=== PATIENT | female | born 1950 | race Caucasian/White ===

== ENCOUNTER → 2020-03-19 11:09 | Outpatient (CLI) | payer MEDICARE, SELFPAY ==
[2020-03-19 11:21] LABS: Adenovirus,PCR Not Detected (NotDetected); Bordetella Pertussis Not Detected (NotDetected); Chlamydophila Pneumoniae, PCR Not Detected (NotDetected); Coronavirus 19, PCR Not Detected (NotDetected); Coronavirus 229E Not Detected (NotDetected); Coronavirus NL63 Not Detected (NotDetected); Coronavirus OC43 Not Detected (NotDetected); Coronovirus HKU1,PCR Not Detected (NotDetected); Human Metapneumovirus Not Detected (NotDetected); Influenza A, PCR Not Detected (NotDetected); Influenza AH1, 2009 Not Detected (NotDetected); Influenza AH1, PCR Not Detected (NotDetected); Influenza AH3,PCR Not Detected (NotDetected); Influenza B, PCR Not Detected (NotDetected); Mycoplasma Pneumoniae, PCR Not Detected (NotDected); Parainfluenza 1, PCR Not Detected (NotDetected); Parainfluenza 2, PCR Not Detected (NotDetected); Parainfluenza 3, PCR Not Detected (NotDetected); Parainfluenza 4, PCR Not Detected (NotDetected); Respiratory Syncytial Virus Not Detected (NotDetected); Rhinovirus/Enterovirus Not Detected (NotDetected)
== END ==
PROVIDERS: Visit Provider Internal Medicine Gastroenterology
DX: Z01.818 Encounter for other preprocedural examination (principal)
CPT/HCPCS: 87581; 87633; 87798

== ENCOUNTER 2020-03-21 10:29 | Day surgery (SDC) | payer MEDICARE, SELFPAY ==
--- NOTE | 2020-03-17 12:05 | SUR.PREOP ---
03/14/2020--PHONE CALL MADE TO PATIENT. PATIENT UNDERSTANDS THAT LAB WORK AND COVID TESTING NEEDS TO BE COMPLETED @ 1030 ON 03/19/2020. PATIENT UNDERSTANDS IF LAB WORK AND COVID-19 TESTS ARE NOT COMPLETED BY 12PM ON THAT DATE, THE SURGERY SCHEDULED WILL BE CANCELLED AND RESCHEDULED FOR ANOTHER TIME.
[2020-03-18 12:29] VITALS: BMI 25.3
[2020-03-21 10:50] VITALS: BP 120/61; PULSE 71; RESP 18; TEMP 36.4; O2SAT 98
[2020-03-21 11:09] LABS: POC Glucose,Bedside 129 (70-110)
[2020-03-21 11:49] VITALS: O2SAT 97
--- NOTE | 2020-03-21 12:13 | P.PCN_ITS ---
[facility] Procedure Note Procedure Note:: Upper Endoscopy Procedure Report: Esophagogastroduodenoscopy with cold biopsies Endoscopost: Sebastian Stephenson II, MD Referring Physician: Shawn Pate MD Date of Procedure: March 21, 2020 Equipment: Olympus GIF 180 standard upper endoscope Sedation: MAC sedation Indications: Mrs. Zheng is a 70-year-old female with longstanding digestive difficulties. She has developed intermittent nausea and vomiting that began a couple of weeks ago after eating at [employer]. She developed dry heaves followed by nausea and vomiting. She had a low-grade fever. She had moderate bloating. This resolved over several days. She does get these episodic bouts and sometimes has associated diarrhea. She reports bloating, fullness and early satiety. She reports no belching, gassiness or dysphagia. She has had no melena or hematochezia. She reports some minor weight loss. Procedure: Prior to the procedure, a history and physical exam was performed, and patient's medications and allergies were reviewed. The risks, benefits and alternatives of the sedation and procedure were discussed with the patient. All questions were answered and informed consent was obtained. The patient was brought to the procedure room. Patient identification and proposed procedure were verified by the physician and the nurse. The patient was placed in a left lateral decubitus position and the scope was passed under direct vision. Throughout the procedure, the patient's blood pressure, pulse, and oxygen saturations were monitored continuously. The upper GI endoscopy was accomplished without difficulty. The patient tolerated the procedure well. Findings: The scope was passed directly into the upper esophagus and advanced to the third portion of the duodenum. The post bulbar duodenum and duodenal bulb were normal with normal mucosa and conniventes. Cold biopsies were taken from the duodenum to rule out celiac disease. The scope was withdrawn through a normal duodenal bulb and pylorus into the stomach. There was evidence of bile reflux with linear reactive gastropathy. The remainder of the antrum, body and fundus of the stomach were grossly normal. Upon retroflexion there was no hiatal hernia. 2 biopsies were taken in the antrum and along the lesser curvature for histology to rule out gastritis and/or H pylori. The scope was then withdrawn into the esophagus. There was a serrated Z line. Biopsies were taken at the GE junction to rule out Lomeli's esophagus. There was no evidence of reflux esophagitis or Schatzki's ring. There were tertiary contractions and evidence of mild esophageal dysmotility. The remainder of the esophageal mucosa was normal. Impression: 1. Nonerosive GERD with mild esophageal dysmotility 2. Mild linear reactive gastropathy Plan: I will follow-up the biopsies. We will discuss additional dietary measures and treatment options. I will proceed with diagnostic colonoscopy.
--- NOTE | 2020-03-21 12:32 | P.PCN_ITS ---
[facility] Procedure Note Procedure Note:: Colonoscopy Procedure Report: Colonoscopy with cold biopsies Endoscopist: Sebastian Stephenson II, MD Referring physician: Shawn Pate MD Date of Procedure: March 21, 2020 Equipment: Olympus 180 variable stiffness pediatric colonoscope Sedation: MAC sedation Indication: Mrs. Zheng is a 70-year-old female with longstanding digestive difficulties and intermittent, nausea, vomiting and diarrhea. She does have a prior history of lymphocytic colitis and had been on Entocort in the past. Her son has Crohn's disease. She had a normal colonoscopy in August 2012 and normal colonoscopy in February 2008. Her last colonoscopy in March 2015 revealed 2 polyps (tubular adenoma x1/benign retention polyp x1) which were removed. She does have mostly chronic constipation but does have difficulties with taking Metamucil or swallowing fiber. Her bowel difficulties were exacerbated by her AP bladder sling in December 2019. She did develop gastroenteritis after eating at [email or web address] 2 weeks ago. She reports no rectal bleeding but has had some minor weight loss. She reports no family history of colon cancer. Procedure: Prior to the procedure, a history and physical exam was performed, and patient's medications and allergies were reviewed. The risks, benefits and alternatives of the sedation and procedure were discussed with the patient. All questions were answered and informed consent was obtained. The patient was brought to the procedure room. Patient identification and proposed procedure were verified by the physician and the nurse. The patient was placed in a left lateral decubitus position and the scope was passed under direct vision. Throughout the procedure, the patient's blood pressure, pulse, and oxygen saturations were monitored continuously. The colonoscopy was accomplished without difficulty. The patient tolerated the procedure well. Findings: On digital rectal examination there was normal rectal tone. There were no external hemorrhoids. The colonoscope was introduced through the anal canal to the rectum and advanced to the cecum. The ileocecal valve and appendiceal orifice were identified. The scope was advanced a short distance into the ileum which appeared grossly normal. The scope was then withdrawn into the colon. The cecum, ascending, transverse, descending, sigmoid and rectum were grossly normal. Cold biopsies were taken from the right colon to rule out microscopic/lymphocytic colitis. There were no mucosal abnormalities identified. Upon retroflexion within the rectum there were grade 1-2 internal hemorrhoids.The preparation was excellent throughout with [place] Preparation Score of 9. The cecal time was 12 minutes. Impression: 1. Normal colonoscopy with intubation of the terminal ileum 2. Grade 1-2 internal hemorrhoids Plan: I will follow-up the biopsies. We will discuss additional dietary measures and treatment options.
[2020-03-21 12:34] VITALS: BP 84/47; PULSE 71; RESP 16; TEMP 36.5; O2SAT 93
[2020-03-21 12:44] VITALS: BP 105/64; PULSE 80; RESP 16; O2SAT 97
[2020-03-21 13:00] VITALS: BP 118/76; PULSE 72; RESP 16; O2SAT 99
[2020-03-21 13:23] VITALS: BP 138/74; PULSE 73; RESP 16; O2SAT 99
== END 2020-03-21 13:23 | disposition home or self-care (01) ==
PROVIDERS: PCP Emergency Medicine; Visit Provider Internal Medicine Gastroenterology
PROC: 0DJ08ZZ Inspection of Upper Intestinal Tract, Via Natural or Artificial Opening Endoscopic (ICD-10-PCS; CPT 43235; principal; 2020-03-21 11:30)
DX: K58.9 Irritable bowel syndrome, unspecified (principal); E11.9 Type 2 diabetes mellitus without complications; Z79.84 Long term (current) use of oral hypoglycemic drugs; Z88.8 Allergy status to other drugs, medicaments and biological substances; K59.09 Other constipation; Z86.010 Personal history of colon polyps; K21.9 Gastro-esophageal reflux disease without esophagitis; K31.9 Disease of stomach and duodenum, unspecified; K64.1 Second degree hemorrhoids
CPT/HCPCS: 43239; 45380; 82962; 88305

== ENCOUNTER 2025-03-20 11:38 | Day surgery (SDC) | payer MEDICARE, SELFPAY ==
[2025-03-19 12:23] VITALS: BMI 23.7
[2025-03-20 12:09] VITALS: BP 157/83; PULSE 72; RESP 18; TEMP 36.3; O2SAT 96
[2025-03-20] MEDS: LACTATED RINGERS 1000ML 1,000 ML 50 ML IV (12:18)
--- NOTE | 2025-03-20 12:33 | EXP.ANES.CKL ---
[facility] Disclaimer: The information contained in this section may have been updated after the patient was seen, as this information can be updated by other users. Medical History Migraine Diabetes mellitus, type 2 Anxiety Depression History of gastroesophageal reflux (GERD) Hyperlipidemia Hypertension History of left heart catheterization (LHC) Surgical History History of bladder repair surgery History of meniscectomy of right knee History of meniscectomy of left knee History of hysterectomy History of colonoscopy History of cholecystectomy History of appendectomy Family History Other No significant family history Social History Smoking Status: Never smoker alcohol intake: never substance use type: denies use current occupational status: retired Travel in the last 8 weeks?: None caffeine: No [facility] Anesthesia Checklist Patient Identification Patient Identification: Verbal (Name & ) Structural Data Admitted From: Home Planned Operative Procedure/s: colonoscopy Consent for Planned Operative Procedure(s) Verified: Yes Airway Assessment Mallampati Score:: Class II C-Spine Mobility Assessed: Yes TMJ Mobility Assessed: Yes Dentition: Good Dentition Neurological Assessment Level of Consciousness: Awake, Alert and Appropriate Anesthesia Plan Anesthesia Risk discussed: Yes Anesthesia Plan: Verified ASA Class: II Anesthesia Type: MAC
--- NOTE | 2025-03-20 12:54 | EXP.HP ---
History of Present Illness *Admission Date: 03/20/25 *Reason for visit:: Surveillance colonoscopy *History of present illness: Mrs. Zheng is a 75-year-old female who is here for surveillance colonoscopy. She had a colonoscopy in March 2015 and had 2 polyps (tubular adenoma x 1/benign retention polyp x 1) which were removed. She did have some spotting of blood in the toilet tissue a couple of times. The patient is here for surveillance colonoscopy. The examination is deemed medically necessary for surveillance colonoscopy. The patient has been seen, interviewed and examined prior to the procedure by both myself and the anesthesia provider. [facility] Disclaimer: The information contained in this section may have been updated after the patient was seen, as this information can be updated by other users. Medical History (Updated 03/20/25 @ 13:05 by Sebastian Stephenson II, MD) Migraine Diabetes mellitus, type 2 Anxiety Depression History of gastroesophageal reflux (GERD) Hyperlipidemia Hypertension History of left heart catheterization (LHC) Surgical History History of bladder repair surgery History of meniscectomy of right knee History of meniscectomy of left knee History of hysterectomy History of colonoscopy History of cholecystectomy History of appendectomy Family History Other No significant family history Social History (Updated 03/20/25 @ 12:34 by Brayden Baeza CRNA) Smoking Status: Never smoker alcohol intake: never substance use type: denies use current occupational status: retired Travel in the last 8 weeks?: None caffeine: No Have you lived/traveled outside [place] in past 30 days?: No Contact w/someone who lives/traveled outside US past 30 days?: No Exposure to someone with infectious disease in past 14 days?: No Do you have a fever (greater than 100.4 F or 38 C)?: No Have you tested positive for COVID-19?: Yes Exposed to someone with COVID-19 in past 14 days?: No Do you have a sore throat?: No Do you have a cough?: No Do you have any weakness?: No Are you experiencing any nausea/vomitting?: Yes Do you have any diarrhea?: No Are you experiencing any unusual bleeding?: No Do you have any muscle aches/pain?: No Do you have any abdominal pain?: No Are you experiencing loss of taste or smell?: No Other Medical History Have you received the Flu Vaccine for this season: Yes Have you received the Pneumonia Vaccine: Yes Review of Systems Review of Systems Review of systems (narrative): Negative *Cardiovascular Comments: Negative *Gastrointestinal Comments: Negative *Genitourinary Comments: Negative *Musculoskeletal Comments: Negative *Neurologic Comments: Negative Meds Home Medications and Allergies Home Medications ?Medication ?Instructions ?Recorded ?Confirmed ?Type aspirin 81 mg tablet,delayed 81 mg PO DAILY Blood thinner 03/18/20 03/20/25 History release carvedilol 25 mg tablet 37.5 mg PO BID blood pressure 03/18/20 03/20/25 History ferrous sulfate 325 mg (65 mg 325 mg PO DAILY Supplement 03/18/20 03/20/25 History iron) tablet losartan 50 mg tablet 100 mg PO DAILY blood pressure 03/18/20 03/20/25 History metformin 500 mg tablet 500 mg PO BID Diabetes 03/18/20 03/20/25 History vitamin B complex 1 each PO BID Supplement 03/18/20 03/20/25 History amlodipine 5 mg tablet 2.5 mg PO DAILY bp 03/21/20 03/20/25 History citalopram 10 mg tablet 5 mg PO DAILY Depression 03/21/20 03/20/25 History famotidine 20 mg tablet 20 mg PO DAILY Reflux/Acid reflux 03/21/20 03/20/25 History topiramate 25 mg tablet (Topamax) 25 mg PO DAILY 03/19/25 03/20/25 History New Prescriptions to Start Prescriptions: Allergies Allergy/AdvReac Type Severity Reaction Status Date / Time morphine Allergy Intermediate itching Verified 03/20/25 12:11 erythromycin base Allergy Mild itching Verified 03/20/25 12:11 hydrocodone Allergy Mild itching Verified 03/20/25 12:11 oxycodone Allergy Mild itching Verified 03/20/25 12:11 Exam Data for Last 24 hours Vital signs and Labs for Last 24 Hours: Temp Pulse Resp BP Pulse Ox O2 Del Method 97.4 F L 72 18 157/83 H 96 Room Air 03/20/25 12:09 03/20/25 12:03/20/25 12:03/20/25 12:03/20/25 12:03/20/25 12:09 I & O for Last 24 hours: Intake & Output 03/17/25 03/18/25 03/19/25 03/20/25 23:59 23:59 23:59 23:59 Weight 147 lb *Routine HEENT Exam Head: Present normocephalic Eye: Present EOMI and PERRL ENT: Present mucous membranes moist *Routine Neck Exam Neck: Present supple *Routine Respiratory Exam Respiratory: Present CTA bilaterally *Routine Cardiovascular Exam Cardiovascular: Present RRR *Routine Abdominal Exam Abdominal: Present soft and normoactive bowel sounds; Absent tenderness *Routine Rectal Exam Rectal:: deferred *Routine Genitalia Exam Genitalia:: deferred *Routine Extremities Exam Extremities: Absent cyanosis, clubbing or edema *Routine Skin Exam Skin: Present warm; Absent rash *Routine Neurological Exam Neurological: Present alert and oriented X3 Assessment and Plan *Assessment and plan (1) Personal history of adenomatous and serrated colon polyps: Status: Acute Category: Medical Code(s): Z86.0101 - Personal history of adenomatous and serrated colon polyps Plan A/P: 1. Personal history of adenomatous colon polyps is the preprocedural diagnosis. The patient will be anesthetized/sedated using MAC sedation. The patient has been seen and examined. Cardiac and lung assessment prior to the examination is stable. Proceed with planned surveillance colonoscopy.
[2025-03-20 12:59] VITALS: O2SAT 100
--- NOTE | 2025-03-20 13:06 | HMH.PROCNOTE ---
[facility] Procedure Note Date: 03/20/25 Time: 13:19 Procedure Note:: Colonoscopy Procedure Report: Colonoscopy with monopolar ablation/coagulation of internal hemorrhoids Endoscopist: Sebastian Stephenson II, MD Referring physician: NATE Card Date of Procedure: March 20, 2025 Equipment: Olympus 190 variable stiffness pediatric colonoscope Sedation: MAC sedation Indication: Mrs. Zheng is a 75-year-old female who is here for surveillance colonoscopy. The patient had a single tubular adenoma removed at the time of her colonoscopy in March 2015. The patient has had normal colonoscopies in February 2008, August 2012 and March 2020. She does have a prior history of lymphocytic colitis. Her son has Crohn's disease. The patient more recently did have a couple of bouts of spotting of blood on the toilet tissue (from internal hemorrhoids). She reports no abdominal pain, weight loss, change in her bowel habits or family history of colon cancer. Procedure: Prior to the procedure, a history and physical exam was performed, and patient's medications and allergies were reviewed. The risks, benefits and alternatives of the sedation and procedure were discussed with the patient. All questions were answered and informed consent was obtained. The patient was brought to the procedure room. Patient identification and proposed procedure were verified by the physician and the nurse. The patient was placed in a left lateral decubitus position and the scope was passed under direct vision. Throughout the procedure, the patient's blood pressure, pulse, and oxygen saturations were monitored continuously. The colonoscopy was accomplished without difficulty. The patient tolerated the procedure well. Findings: On digital rectal examination there was normal rectal tone. There were no external hemorrhoids. The colonoscope was introduced through the anal canal to the rectum and advanced to the cecum. The ileocecal valve and appendiceal orifice were identified. The scope was advanced a short distance into the ileum which appeared grossly normal. The scope was then withdrawn into the colon. The cecum, ascending, transverse, descending, sigmoid and rectum were grossly normal. There were no mucosal abnormalities identified. Upon retroflexion within the rectum there were grade 2 internal hemorrhoids. 3 columns of hemorrhoids were ablated/coagulated using monopolar ablation to destruction. The preparation was excellent throughout with [place] Preparation Score of 9. The cecal time was 10 minutes. Impression: 1. Normal colonoscopy with intubation of the terminal ileum 2. Grade 2 internal hemorrhoids status post monopolar ablation/coagulation Plan: The patient will not require any further preventive/surveillance colonoscopy. I would encourage psyllium fiber supplementation on a maintenance basis.
[2025-03-20 13:24] VITALS: BP 123/66; PULSE 67; RESP 16; TEMP 36.5; O2SAT 92
[2025-03-20 13:34] VITALS: BP 113/72; PULSE 66; RESP 16; O2SAT 96
[2025-03-20 13:44] VITALS: BP 122/75; PULSE 69; RESP 16; O2SAT 98
[2025-03-20 13:54] VITALS: BP 113/76; PULSE 70; RESP 16; O2SAT 98
[2025-03-22 12:26] LABS: POC Glucose,Bedside 137 (70-110)
== END 2025-03-20 14:12 | disposition home or self-care (01) ==
PROVIDERS: PCP Nurse Practitioner Family; Visit Provider Internal Medicine Gastroenterology
PROC: 0DJD8ZZ Inspection of Lower Intestinal Tract, Via Natural or Artificial Opening Endoscopic (ICD-10-PCS; CPT 45378; principal; 2025-03-20 13:00)
DX: Z12.11 Encounter for screening for malignant neoplasm of colon (principal); Z86.0101 Personal history of adenomatous and serrated colon polyps; K64.1 Second degree hemorrhoids; E11.9 Type 2 diabetes mellitus without complications; Z79.84 Long term (current) use of oral hypoglycemic drugs
CPT/HCPCS: 45388; 82962; J7120